=== PATIENT | male | born 1950 | race Caucasian/White ===

== ENCOUNTER 2016-06-29 07:27 | Observation (INO) | payer BC ==
[2016-06-28 12:28] LABS: HEMATOCRIT 48.7 % (40.0-51.0); HEMOGLOBIN 16.4 g/dL (13.6-17.8)
[2016-06-28 12:41] LABS: A/G RATIO 1.1 (0.7-1.9); ALBUMIN 3.9 G/DL (3.5-5.0); ALKALINE PHOSPHATASE 84 U/L (45-117); BUN (BLOOD UREA NITROGEN) 7 MG/DL (6-23); CALCIUM, SERUM 9.1 MG/DL (8.5-10.4); CHLORIDE, SERUM 100 MMOL/L (96-112); CO2 (CARBON DIOXIDE) 39 MMOL/L (24-34); CREATININE 0.63 MG/DL (0.70-1.30); GFR AFRICAN AMERICAN 122 ML/MIN (>=60); GFR NON AFRICAN AMERICAN 105 ML/MIN (>=60); GLOBULIN 3.4 G/DL (2.5-4.1); GLUCOSE, SERUM 115 MG/DL (60-99); POTASSIUM, SERUM 3.9 MMOL/L (3.5-5.3); SGOT(AST) 10 U/L (5-40); SGPT(ALT) 21 U/L (5-65); SODIUM, SERUM 140 MMOL/L (135-148); TOTAL PROTEIN 7.3 G/DL (6.0-8.5)
--- NOTE | ~2016-06-29 | CN ---
Consultation Report [facility] [address] [place]. [address] NAME: MARIA LUISA VALENCIA JR : 54 STATUS : DIS Sheryl PAT#: [id number] AGE: 65 ADM/REG DATE : 06/29/16 MR#: [id number] REPORT SERV DATE: 06/30/16 DICTATED BY: SCOTT MEYER IV DATE: 06/30/16 REPORT STATUS : Draft TRANSCRIBED BY: KEVIN DATE: 06/30/16 PULMONARY CONSULTATION DATE OF CONSULTATION: 06/30/2016 REASON FOR REQUEST: Postoperative hypoxemia. History is obtained from the patient. HISTORY OF PRESENT ILLNESS: Mr. Valencia is a 65-year-old male with a history of tobacco dependency, chronic active hepatitis C, status post treatment, who is recently status post cholecystectomy for cholecystitis with postoperative hypoxemia. The patient developed abdominal pain, which was evaluated in the room by his report, with ultrasound and abdominal CT scan. He was felt to have cholecystitis which was treated with laparoscopic cholecystectomy by Dr. Bishop. Postoperatively, the patient was significantly hypoxemic for which he was admitted by Anesthesiology. The patient has not been on supplemental oxygen at home. He does carry the diagnosis of adult COPD, however, has never had pulmonary function studies. He has been noted to wheeze for which he was given an albuterol inhaler at work which he uses infrequently less than once a week. Exercise tolerance is 1-2 flights of stairs and 1 block, though varies. He does note intermittent wheezing for which he will use the albuterol inhaler. He had an episode of "pneumonia" one month ago, though feels he has recovered from this. He does have a morning cough productive of white phlegm. He denies fevers, chills, sweats, hemoptysis, or unexplained weight loss. The patient reportedly snores. He has no bed partner. He is unaware of apneic episodes. He has relatively poor sleep hygiene with variable sleep patterns. He feels his sleep is restorative, however, he does complain of sedentary hypersomnolence and takes a power nap most afternoons. Pulmonary history is remarkable for no history of childhood asthma, for known pneumonia. He does carry the diagnosis of clinical COPD. He has more than an [id number] smoking history, currently smoking a half pack of cigarettes a day. 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 He is not up to date on his immunizations. PAST MEDICAL HISTORY: Remarkable for: 1. Tobacco dependency. 2. Chronic active hepatitis C. 3. Recent cholecystitis. SURGERIES: 1. Variceal repair. 2. Liver biopsy. 3. Laparoscopic cholecystectomy. Consultation Report [address] [place]. [address] NAME: MARIA LUISA VALENCIA JR : 54 STATUS : DIS Sheryl PAT#: [id number] AGE: 65 ADM/REG DATE : 06/29/16 MR#: [id number] REPORT SERV DATE: 06/30/16 DICTATED BY: SCOTT MEYER IV DATE: 06/30/16 REPORT STATUS : Draft TRANSCRIBED BY: KEVIN DATE: 06/30/16 ALLERGIES: CODEINE AND SULFA DRUGS, WITH THE LATTER CAUSING A RASH. CURRENT MEDICATIONS: DuoNeb four times a day and Habitrol patch 14 mg daily. SOCIAL HISTORY: Remarkable for the tobacco use as above. He drank alcohol heavily until 14 years ago, then quit. 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 FAMILY HISTORY: Remarkable for father with COPD and mother with alcoholism. REVIEW OF SYSTEMS: 14 systems reviewed with pertinent positives as noted above. PHYSICAL EXAMINATION: GENERAL: This is a well-developed elderly male, in no current distress. VITAL SIGNS: Temperature is 96.7, pulse is 75, respiratory rate is 16. Saturations are anywhere from 87%-92% on room air. Blood pressure is 103/57. HEENT: Normocephalic, atraumatic. Extraocular movements are intact. Pupils react to light. Sclerae and conjunctivae are normal. He has a slightly retrognathic lower jaw. He has a Mallampati II to III airway with narrowing of the posterior pharyngeal space. NECK: Without any palpable lymphadenopathy or thyromegaly. CHEST: The patient has some dry and bibasilar inspiratory crackles. There is a faint expiratory wheeze on the left. rhonchi are noted. CARDIOVASCULAR: Jugular venous pulsations are difficult to elicit. He has 2+ carotid upstrokes. No obvious bruit. He has a regular S1, S2 with no clear murmur or S3. Peripheral pulses are slightly diminished. ABDOMEN: Protuberant. There are healing laparoscopic incision sites. There is no palpable hepatosplenomegaly or mass. It is slightly tender. EXTREMITIES: Demonstrate no cyanosis, clubbing, edema, or palpable cords. NEUROLOGIC: There is possibly some minimally decreased dorsiflexion of the left foot. Sensation is intact to light touch. Strength is otherwise 5/5. LABORATORY DATA: Chest x-ray demonstrates some increased bronchovascular markings, predominantly at the right base with possibly some oligemia in the upper lung perez. No discrete infiltrate, mass, or adenopathy is noted. Hemoglobin is 16.4 and hematocrit 48.7. Chemistry: Sodium 141, potassium 4.2, chloride 106, bicarbonate 36, BUN 15, creatinine 0.6, glucose of 142. ASSESSMENT AND PLAN: 1. Respiratory. The patient likely has significant underlying chronic obstructive pulmonary disease and possibly with baseline hypercapnia. He will be given Anoro Ellipta 1 puff daily. Medication was started in the hospital, and he was given a coupon to take at home once a day. He will continue to use the albuterol HFA as needed Consultation Report [place] [id number] [facility] [place]. [address] NAME: MARIA LUISA VALENCIA JR : 54 STATUS : DIS Sheryl PAT#: [id number] AGE: 65 ADM/REG DATE : 06/29/16 MR#: [id number] REPORT SERV DATE: 06/30/16 DICTATED BY: SCOTT MEYER IV DATE: 06/30/16 REPORT STATUS : Draft TRANSCRIBED BY: KEVIN DATE: 06/30/16 for symptoms. He will be qualified for supplemental oxygen. He does have some symptoms consistent with obstructive sleep apnea for which he will receive an overnight oximetry as he recovers and possibly sleep evaluation as indicated. We discussed the need for an outpatient lung cancer screening CT scan. 2. Renal. Blood gas will be obtained as a baseline, particularly with the elevated bicarbonate on the chemistries. Magnesium and phosphate level will be added to blood in the lab. 3. Neurologic. Smoking cessation was reviewed. We reviewed adverse cardiopulmonary consequences of ongoing tobacco use. Medications and techniques were discussed for more than 5 minutes. We discussed the use of Chantix; however, he is not interested in additional medications at this time. 4. Endocrinologic. Thyroid functions will be obtained with hypercapnia. The hemoglobin A1c will be obtained with the elevated blood sugar. This is likely a stress response. 5. Infectious disease. Prevnar 13 at the time of discharge. Thank you for consulting us. We will follow the patient with you. MACK/KEVIN Scott Meyer IV, M.D. / [id number] CC: Israel Bishop M.D.
--- NOTE | ~2016-06-29 | OP ---
Record Of Operation [facility] [address] [place]. [address] NAME: MARIA LUISA GEE JR : 54 STATUS : [place] [facility] [place] PAT#: [id number] AGE: 65 ADM/REG DATE : 06/29/16 MR#: [id number] REPORT SERV DATE: 06/29/16 DICTATED BY: ISRAEL MORTENSEN DATE: 06/29/16 REPORT STATUS : Draft TRANSCRIBED BY: MODRyan DATE: 06/29/16 DATE OF PROCEDURE: 06/29/2016 PREOPERATIVE DIAGNOSES: 1. Acute cholecystitis with cholelithiasis. 2. Chronic obstructive pulmonary disease. 3. Nicotine dependence. 4. History of hepatitis C with treatment. POSTOPERATIVE DIAGNOSES: 1. Acute cholecystitis with cholelithiasis. 2. Chronic obstructive pulmonary disease. 3. Nicotine dependence. 4. History of hepatitis C with treatment. PROCEDURE: Laparoscopic cholecystectomy. ANESTHESIA: General. SURGEON: Israel Mortensen M.D. STAMP MAKER: Loyd. COMPLICATIONS: None. DRAINS: None. ESTIMATED BLOOD LOSS: 20 mL. FINDINGS: The patient was noted to have a thickened gallbladder wall, with normal-size cystic duct, and preoperative liver function studies. Therefore, no cholangiogram was obtained. He had findings consistent with acute cholecystitis. OPERATIVE TECHNIQUE: The patient was brought to the operating room and placed on the table in supine position. He had preoperative IV antibiotics. He had sequential hose in place. He voided prior to the procedure. He underwent general endotracheal anesthesia and was prepped and draped in sterile fashion. A time-out was completed. Local anesthesia was instilled to the periumbilical skin. A 15 blade knife was used to make incision through the base umbilicus. The skin and fascia were elevated and the Veress needle was inserted. A water drop test was safely performed. An 11 mm trocar was inserted through the umbilicus followed by the laparoscope. There was no evidence of Veress or trocar injury. The patient was then placed in reverse Trendelenburg and rolled to the left. An 11 mm subxiphoid and two 5 mm right upper quadrant trocars were placed under direct visualization. The gallbladder fundus was grasped and elevated over the liver edge. It was noted to be markedly thickened and dilated consistent with cholecystitis, with pericholecystic fluid. The infundibulum was then retracted inferolaterally. The [place] dissector was used to Record Of Operation [place] [id number] [facility] [place]. [address] NAME: MARIA LUISA GEE JR : 54 STATUS : REG [facility] [place] PAT#: [id number] AGE: 65 ADM/REG DATE : 06/29/16 MR#: [id number] REPORT SERV DATE: 06/29/16 DICTATED BY: ISRAEL MORTENSEN DATE: 06/29/16 REPORT STATUS : Draft TRANSCRIBED BY: MODRyan DATE: 06/29/16 dissect the entire cystic duct after it was initially seen on the cystic duct gallbladder junction laterally. It was circumferentially dissected with the [place] dissector until it was seen circumferentially for several centimeters. It was not dilated. Dissection more medial revealed the cystic artery, along with the cystic lymphatic channel, with enlarged cystic node. The cystic artery and lymphatic channel were then dissected circumferentially and encircled for several centimeters. At this point, two clips were placed proximally and distally on the cystic duct and it was divided between the clips without encroachment of common bile duct. Three clips were then placed proximally on the cystic artery and lymphatic channel and it was cauterized on the gallbladder wall distally. The gallbladder was removed from the fossa using electrocautery hook and extracted through the umbilicus with extension of the umbilical incision. The laparoscope and trocar were reinserted. Examination of hepatic fossa noted to be hemostatic. The clips were noted to be intact without encroachment of the common bile duct. There was no evidence of any bleeding, biliary spillage, or other visual abnormalities. At this point, all the instruments and trocars removed under direct visualization. The pneumoperitoneum was aspirated. The umbilical fascia was reapproximated using a running 0 Vicryl suture. The subcutaneous tissues were reapproximated using Vicryl suture. The skin edges were reapproximated using interrupted subcuticular Monocryl sutures. Dermabond was applied. He was extubated and taken to the recovery room in stable condition. All sponge needle counts reported correct. FREDI/KEVIN Israel Mortensen M.D. / [id number] CC: Israel Mortensen M.D.
[~2016-06-29 07:27] MED LIST: PCET PO; ZOFRAN4 PO
[2016-06-30 06:55] LABS: BUN (BLOOD UREA NITROGEN) 15 MG/DL (6-23); CALCIUM, SERUM 8.8 MG/DL (8.5-10.4); CHLORIDE, SERUM 106 MMOL/L (96-112); CO2 (CARBON DIOXIDE) 36 MMOL/L (24-34); GFR AFRICAN AMERICAN 124 ML/MIN (>=60); GFR NON AFRICAN AMERICAN 107 ML/MIN (>=60); GLUCOSE, SERUM 142 MG/DL (60-99); POTASSIUM, SERUM 4.2 MMOL/L (3.5-5.3); SODIUM, SERUM 141 MMOL/L (135-148)
[2016-06-30 15:08] LABS: BE (BASE EXCESS) 2.9 MEQ/L (0 +/- 2.5); CARBOXYHEMOGLOBIN 0.8 % (0-3); DEVICE room air; HCO3 (ACTUAL BICARBONATE) 27.4 MEQ/L (23-27); HEMOBLOGIN CONTENT 14.1 G/DL (14-18); INSTRUMENT SERIAL # 8083; METHEMOGLOBIN 0.3 % (0-3); O2 CONTENT 17.6 VOL% (18-24); OPERATOR ID 14472; PCO2 (CO2 TENSION) 42 MMHG (35-45); PO2 (O2 TENSION) 55 MMHG (79-93); SAMPLE Arterial; pH 7.44 (7.37-7.43)
[2016-06-30] MEDS ORDERED: ANOROELLIPTA INH (16:11)
[2016-06-30] MEDS ORDERED: NORCO1 TAB PO (16:11)
== END 2016-06-30 17:57 | disposition home or self-care (01) ==
LOC: SDC 07:27 → 5SO 15:38
PROVIDERS: Surgery
PROC: 0FT44ZZ Resection of Gallbladder, Percutaneous Endoscopic Approach (ICD-10-PCS; principal; 2016-06-29 09:00)
DX: K80.10 Calculus of gallbladder with chronic cholecystitis without obstruction (principal); B18.2 Chronic viral hepatitis C; J44.9 Chronic obstructive pulmonary disease, unspecified; F17.210 Nicotine dependence, cigarettes, uncomplicated; Z98.890 Other specified postprocedural states; Z88.2 Allergy status to sulfonamides; Z88.5 Allergy status to narcotic agent; Z79.899 Other long term (current) drug therapy; Z87.442 Personal history of urinary calculi; Z23 Encounter for immunization
CPT/HCPCS: 71020; 80048; 80053; 82805; 85014; 85018; 88304; 90670; 93005; 94640; 96372; A9270-GY; G0009; G0378; J0690; J2250; J2370; J2405; J2710; J2930; J3010; P9045